=== PATIENT | female | born 1955 | race Caucasian/White ===

== ENCOUNTER 2020-07-25 21:49 | Emergency (ER) | payer MEDICARE, MEDICAID ==
[~2020-07-25] VITALS: Ht 152.4 cm; Wt 118.5 kg
[~2020-07-25 21:49] MED LIST: ALBUTEROL MDI
[2020-07-25 21:51] VITALS: BP 175/97
[2020-07-25] MEDS ORDERED: LIDOCAINE-MPF 1%, 5ML ONE (22:10)
--- NOTE | 2020-07-25 22:14 | NUR ---
pt sitting on gurney with family at bedside, i&d set up ready. pt complaining of needing an inhaler when dc'd.
[2020-07-25] MEDS ORDERED: LIDOCAINE-MPF 2% ,5ML ONE (22:16)
[2020-07-25] MEDS ORDERED: LIDOCAINE 2%, 20ML SQ ONE (22:30)
--- NOTE | 2020-07-25 23:09 | NUR ---
pt wound dressed, pt given dc isntructions and prescriptions and instructions for wound care. pt verbalizes understanding and agreement with plan of care, verbalizes readiness to dc. pt ambulated with cane out of ed with family members and all belongings.
== END 2020-07-25 23:12 | disposition home or self-care (01) ==
LOC: ED 23:00
DX: L03.012 Cellulitis of left finger (principal); M79.645 Pain in left finger(s); J44.9 Chronic obstructive pulmonary disease, unspecified; I10 Essential (primary) hypertension; Z76.0 Encounter for issue of repeat prescription
CPT/HCPCS: 10060; 99283